=== PATIENT | male | born 1945 | race African-American/Black ===

== ENCOUNTER → 2019-04-06 | Outpatient (CLI) | payer MEDICARE | LOC: OD 08:47 | PROVIDERS: ATTEND Orthopaedic Surgery | DX: R79.82 Elevated C-reactive protein (CRP) (principal) | CPT/HCPCS: 36415; 86140 ==

== ENCOUNTER 2019-04-13 12:00 | Inpatient (IN) | payer MEDICARE ==
[2019-05-06] MEDS ORDERED: LIDOCAINE 0.5% INJ-PF (5 MG/ML) 50 ML SDV SUBCUT PRN (05:00)
[2019-05-06] MEDS ORDERED: LACTATED RINGERS 1000 ML IV PRN (05:00)
[2019-05-06] MEDS ORDERED: VANCOMYCIN HCL 1,000 MG in DEXTROSE 5%-WATER 250 ML IV PRN (05:00)
[2019-05-06] MEDS ORDERED: CEFAZOLIN SODIUM 2 GM in DEXTROSE 5%-WATER 100 ML IV PRN (05:00)
[2019-05-06] MEDS ORDERED: CELECOXIB 200 MG CAPSULE ONE ×2 (05:49→05:52)
[2019-05-06] MEDS ORDERED: ACETAMINOPHEN 325 MG TABLET ONE (05:49)
[2019-05-06] MEDS ORDERED: GABAPENTIN 100 MG CAPSULE ONE (05:50)
[2019-05-06] MEDS ORDERED: SCOPOLAMINE HYDROBROMIDE 1.5 MG PATCH.TD72 ONE (05:50)
[2019-05-06] MEDS ORDERED: TRAMADOL HCL 50 MG TABLET ONE (05:50)
[2019-05-06] MEDS ORDERED: OXYCODONE HCL SR 10 MG TABLET PO ONE (05:50)
[2019-05-06] MEDS ORDERED: MIDAZOLAM 2 MG/2 ML INJ ONE (06:57)
[2019-05-06] MEDS ORDERED: FENTANYL CITRATE INJ/PF 100 MCG/2 ML AMPUL ONE ×3 (06:57→11:23)
[2019-05-06] MEDS ORDERED: ONDANSETRON HCL INJ/PF 4 MG/2 ML SDV ONE (06:58)
[2019-05-06] MEDS ORDERED: DEXAMETHASONE SOD PHOSPHATE INJ 4 MG/1 ML VIAL ONE (06:58)
[2019-05-06] MEDS ORDERED: PROPOFOL INJ 200 MG/20 ML VIAL IV ONE (06:58)
[2019-05-06] MEDS ORDERED: LIDOCAINE 2% INJ (20 MG/ML) 20 ML MDV ONE (06:59)
[2019-05-06] MEDS ORDERED: FENTANYL CITRATE INJ/PF 100 MCG/2 ML AMPUL IV PRN ×3 (08:17→08:18)
[2019-05-06] MEDS ORDERED: MEPERIDINE HCL/PF INJ 25 MG/1 ML DISP.SYRIN IV PRN (08:17)
[2019-05-06] MEDS ORDERED: DIPHENHYDRAMINE HCL 50 MG/ML VIAL IV PRN (08:17)
[2019-05-06] MEDS ORDERED: MORPHINE SULFATE 10 MG/ML INJ IV PRN ×2 (08:17→11:11)
[2019-05-06] MEDS ORDERED: ONDANSETRON HCL INJ/PF 4 MG/2 ML SDV IV PRN (08:17)
[2019-05-06] MEDS: BUPIVACAINE HCL 0.25 % INJ/PF (2.5 MG/1 ML) 30 ML VIAL ONE ×2 (08:30→09:30)
[2019-05-06] MEDS: VANCOMYCIN HCL INJ 1000 MG VIAL ONE ×2 (08:30→09:30)
[2019-05-06] MEDS: KETOROLAC TROMETHAMINE INJ/PF 30 MG/1 ML SDV ONE ×2 (08:30→09:30)
[2019-05-06] MEDS ORDERED: EPHEDRINE SULFATE INJ 50 MG/1 ML AMPULE ONE (08:33)
[2019-05-06] MEDS ORDERED: METOPROLOL SUCCINATE 50 MG TAB.SR.24H PO SCH (10:00)
[2019-05-06] MEDS ORDERED: (PENDING PHARMACY ID) (Metformin Hcl [Metformin Hcl] 1,000 MG) PO SCH (10:00)
[2019-05-06] MEDS ORDERED: FLUTICASONE PROPIONATE IN SCH (10:00)
[2019-05-06] MEDS ORDERED: NIACIN 500 MG PO SCH ×2 (10:00→11:00)
[2019-05-06] MEDS ORDERED: (PENDING PHARMACY ID) (Magnesium Oxide [Magnesium] 500 MG) PO SCH (10:00)
[2019-05-06] MEDS ORDERED: TAMSULOSIN HCL 0.4 MG CAP.SR.24H PO SCH (10:00)
[2019-05-06] MEDS ORDERED: CYANOCOBALAMIN (VITAMIN B-12) 1,000 MCG TABLET PO SCH (10:00)
--- NOTE | 2019-05-06 10:47 | Operative Report ---
Operative Report DATE OF SURGERY: 05/06/19 PREOPERATIVE DIAGNOSIS: Left primary hip osteoarthritis, severe with protrusio POSTOPERATIVE DIAGNOSIS: Left primary hip osteoarthritis with protrusio, severe OPERATION: Left total hip arthroplasty SURGEON: MOE MILLER JR ANESTHESIA: GA COMPLICATIONS: None ESTIMATED BLOOD LOSS: 100 cc PROCEDURE: Implants: Biomet Taperloc size 14 femoral stem with lateral offset, a Biomet G7 size 62 cup, and a standard liner, a -3 neck length 40 mm ceramic head BRIEF HISTORY: 73 year old male with severe degenerative arthritis of left hip, which has failed conservative treatment and has elected for a total hip arthroplasty. Risks include but are not limited to bleeding, infection, anesthesia, , injury to nerve or vessel, pain, scar, leg length inequality, dislocation, future surgery, and blood clots. Patient read through the pre-op counseling form and signed and solicited for surgery on their left hip. OPERATIVE PROCEDURE: Patient was brought to the operating room on and underwent spinal anesthesia. 2 grams of Ancef and 1 g of vancomycin was given. After proper anesthesia was obtained, patient was positioned, padded, prepped, and draped in the usual sterile fashion on the operating room table. Appropriate time out was performed. An anterior approach to the hip was undertaken with me ticulous hemostasis through the deep interval. A capsulectomy was performed followed by exposure of the femoral neck. The femoral neck was cut in line with the femoral broach and extraction was attempted. Due to prior protrusio, the femoral head was difficult to extract. We removed peripheral osteophytes and attempted extraction again. Unfortunately, this was not adequate and we then had to section the head piecemeal in order to get it out of the acetabulum. The acetabulum was then exposed with three retractors in an atraumatic fashion. Due to the protrusio this was more difficult than usual and required careful retractor placement, leg placement and further dissection in order to achieve adequate exposure. Soft tissue and osteophytes were removed. Anatomic reaming up to accept a 62 mm acetabulum. Because of the protrusio and medialized medial wall we were careful to ream anatomically and not medially. We therefore proceeded with morselizing some of the femoral head and packing that medially in order to have circumferential press-fit into the acetabulum. Wound was irrigated with dilute betadyne solution and the 62 mm acetabulum was impacted into correct position and stability checked by manipulating the impaction handle which rocked the pelvis. A neutral, 40 mm liner was impacted into the shell with good stability. Potential impinging osteophytes were removed. Attention was then directed toward the femur, which was exposed with two retractors in an atraumatic fashion. A bone hook was placed to carefully perform releases along the superior capsule until the femur was safely delivered through the wound. A crap game box person was utilized followed by lateralization rasping and then broaching up to accept a 14 femur. With a lateral offset neck and a -3 head, stability was good in flexion and extension with improved leg lengths. (Preoperatively the patient was approximately 10 to 15 mm long on the left and after trialing we had improved this to approximately 5 mm long on the left). The real lateral offset femur was impacted into a copiously irrigated femoral canal. A 40 mm -3 head was impacted on a clean dry femoral taper. The hip was irrigated and reduced, further irrigation with antibiotic solution, betadine solution, then antibiotic solution. Bleeders were coagulated with bovie cautery. The fascia was then closed with number 2 Stratofix; the subcutaneous tissue closed with interrupted inverted 2-0 monocryl then running 3-0 monocryl subcuticular. Dermabond skin glue was applied followed by a silver dressing. All needle sponge and instrument counts were correct. Patient was awakened from sedation anesthesia and taken to recovery room in good condition. Thank you, Moe Miller DO Due to the increased complexity of this case, it required extra time effort and meticulous attention to safety in order to achieve an ideal result. We spent extra time in getting exposure to the acetabulum, carefully prepping the acetabulum, reaming and packing bone graft in the medial wall of the acetabulum, and additionally spent extra time and exposing the femur as the patient was very large and muscular. Due to these things we are billing for increased time and effort.
[2019-05-06] MEDS ORDERED: OXYCODONE HCL IR 5 MG TABLET PO PRN (11:11)
[2019-05-06] MEDS ORDERED: TRAMADOL HCL 50 MG TABLET PO PRN (11:12)
[2019-05-06] MEDS ORDERED: TRANEXAMIC ACID INJ/PF 1,000 MG/10 ML SDV IV ONE (11:15)
[2019-05-06] MEDS ORDERED: PANTOPRAZOLE SODIUM 20 MG TABLET.DR PO PRN (11:22)
[2019-05-06] MEDS ORDERED: ZOLPIDEM TARTRATE 5 MG TABLET PO PRN (11:22)
[2019-05-06] MEDS ORDERED: DIPHENHYDRAMINE HCL 25 MG CAPSULE PO PRN (11:22)
[2019-05-06] MEDS ORDERED: TRANEXAMIC ACID INJ/PF 1,000 MG/10 ML SDV ONE (11:23)
[2019-05-06] MEDS ORDERED: NORMAL SALINE 1000 ML 1,000 ML IV PRN (11:23)
[2019-05-06] MEDS ORDERED: DOCUSATE SODIUM 100 MG CAPSULE PO PRN (11:23)
[2019-05-06] MEDS ORDERED: ONDANSETRON 4 MG TAB.RAPDIS PO PRN (11:24)
[2019-05-06] MEDS ORDERED: DEXAMETHASONE SOD PHOS INJ 10 MG/1 ML VIAL ONE (12:02)
--- NOTE | 2019-05-06 13:14 | RADIOLOGY REPORT (SQ) ---
EXAM DESCRIPTION: HIP LEFT AP/LATERAL COMPLETED DATE/TIME: 05/06/2019 11:37 am REASON FOR STUDY: s/p left total hip M25.552 PAIN IN LEFT HIP COMPARISON: None. NUMBER OF VIEWS: Two views. TECHNIQUE: AP pelvis and additional frog-leg view of the left hip. LIMITATIONS: None. FINDINGS: Postoperative images show a left hip arthroplasty in good position. No acute finding. De generative joint disease is present in the right hip. IMPRESSION: Left hip arthroplasty with no acute finding. Degenerative joint disease in the right hi p. TECHNICAL DOCUMENTATION: JOB ID: [id number] 2010 [employer]- All Rights Reserved Reading location - IP/workstation name: [email or web address]
[2019-05-06] MEDS ORDERED: ROCURONIUM BROMIDE INJ 50 MG/5 ML VIAL IV ONE (14:44)
[2019-05-06] MEDS ORDERED: SUCCINYLCHOLINE CHLORIDE INJ 200 MG/10 ML VIAL ONE (14:44)
--- NOTE | 2019-05-06 15:32 | RADIOLOGY REPORT (SQ) ---
EXAM DESCRIPTION: NO CHG FLUORO; HIP IN OPERATING RM COMPLETED DATE/TIME: 05/06/2019 2:40 pm REASON FOR STUDY: LEFT HIP TOTAL ARTHROPLASTY ASST WITH FLUORO IN OR M25.552 PAIN IN LEFT HIP COMPARISON: None. FLUOROSCOPY TIME: 0.1 minute 2 images saved to PACS. TECHNIQUE: Intra-operative images acquired during surgical procedure to evaluate progress. NUMBER OF IMAGES: 2 LIMITATIONS: None. FINDINGS: Fluoroscopic images from total hip arthroplasty. IMPRESSION: IMAGE(S) OBTAINED DURING PROCEDURE. COMMENT: Quality ID [id number]: Final reports for procedures using fluoroscopy that document radiation exp osure indices, or exposure time and number of fluorographic images (if radiation exposure indices are not available) Please consult full operative report of the attending physician for description of the procedure. TECHNICAL DOCUMENTATION: JOB ID: [id number] 2010 [employer]- All Rights Reserved Reading location - IP/workstation name: [email or web address]
--- NOTE | 2019-05-06 15:32 | RADIOLOGY REPORT (SQ) ---
EXAM DESCRIPTION: NO CHG FLUORO; HIP IN OPERATING RM COMPLETED DATE/TIME: 05/06/2019 2:40 pm REASON FOR STUDY: LEFT HIP TOTAL ARTHROPLASTY ASST WITH FLUORO IN OR M25.552 PAIN IN LEFT HIP COMPARISON: None. FLUOROSCOPY TIME: 0.1 minute 2 images saved to PACS. TECHNIQUE: Intra-operative images acquired during surgical procedure to evaluate progress. NUMBER OF IMAGES: 2 LIMITATIONS: None. FINDINGS: Fluoroscopic images from total hip arthroplasty. IMPRESSION: IMAGE(S) OBTAINED DURING PROCEDURE. COMMENT: Quality ID [id number]: Final reports for procedures using fluoroscopy that document radiation exp osure indices, or exposure time and number of fluorographic images (if radiation exposure indices are not available) Please consult full operative report of the attending physician for description of the procedure. TECHNICAL DOCUMENTATION: JOB ID: [id number] 2010 [employer]- All Rights Reserved Reading location - IP/workstation name: [email or web address]
[2019-05-06] MEDS: OXYCODONE HCL IR 5 MG TABLET PO PRN (16:44)
[2019-05-06] MEDS: ACETAMINOPHEN 325 MG TABLET PO SCH ×2 (16:45→21:34)
[2019-05-06] MEDS: CEFAZOLIN SODIUM 2 GM in DEXTROSE 5%-WATER 100 ML IV SCH ×2 (17:10→23:31)
[2019-05-06] MEDS: GABAPENTIN 100 MG CAPSULE PO SCH (17:23)
[2019-05-06] MEDS: KETOROLAC TROMETHAMINE INJ/PF 30 MG/1 ML SDV IV SCH (17:23)
[2019-05-06] MEDS: FLUTICASONE PROPIONATE HFA 110 MCG/PUFF 12 GM MDI IH SCH (17:26)
[2019-05-06] MEDS: METFORMIN HCL 500 MG TABLET PO SCH (21:34)
[2019-05-07] MEDS: KETOROLAC TROMETHAMINE INJ/PF 30 MG/1 ML SDV IV SCH ×2 (04:03→09:41)
[2019-05-07] MEDS: ACETAMINOPHEN 325 MG TABLET PO SCH (06:42)
[2019-05-07] MEDS: AMLODIPINE BESYLATE 5 MG TABLET PO SCH ×2 (09:36→09:38)
[2019-05-07] MEDS: ATORVASTATIN CALCIUM 40 MG TABLET PO SCH ×2 (09:37→09:38)
[2019-05-07] MEDS: PANTOPRAZOLE SODIUM 40 MG TABLET.DR PO SCH ×2 (09:37→09:38)
[2019-05-07] MEDS: MAGNESIUM OXIDE 400 MG TABLET PO SCH ×2 (09:37→09:39)
[2019-05-07] MEDS: ALLOPURINOL 100 MG TABLET PO SCH ×2 (09:37→09:38)
[2019-05-07] MEDS: GABAPENTIN 100 MG CAPSULE PO SCH (09:39)
[2019-05-07] MEDS: METFORMIN HCL 500 MG TABLET PO SCH (09:39)
[2019-05-07] MEDS: OXYCODONE HCL IR 5 MG TABLET PO PRN (09:40)
[2019-05-07] MEDS ORDERED: POLYETHYLENE GLYCOL 3350 POWDER 17 GM/1 PACKET PO SCH (10:00)
[2019-05-07] MEDS ORDERED: ASPIRIN 325 MG TABLET, ENT COATED PO SCH (10:00)
[2019-05-07] MEDS ORDERED: CELECOXIB 200 MG CAPSULE PO SCH (10:00)
[2019-05-07 10:09] VITALS: BP 111/65
[2019-05-07] MEDS: RAMIPRIL 10 MG CAPSULE PO SCH ×2 (12:26→12:35)
[2019-05-07] MEDS: FLUTICASONE PROPIONATE HFA 110 MCG/PUFF 12 GM MDI IH SCH (12:35)
--- NOTE | 2019-05-12 14:57 | PDOC DISCHARGE SUMMARY ---
Impression - Admit/DC Date/PCP Admission Date/Primary Care Provider: 05/06/19 05:15 KEN CRANE MD Discharge Date: 05/07/19 - Assessment Summary: Mr. Hargrove is a very pleasant to-year-old male who presented to my clinic with chronic left hip pain that is been going on for over a year. After thorough work-up and attempts at conservative treatment including activity modification and rxlo-mlp-ykgeejn pain medication, they were having severe difficulty with ambulation and was over the counter pain medication for daily activity. They found the pain debilitating and decreasing thier quality of life as they were unable to perform activities of daily living such as ambulating short distances and getting in and out of the car. After a thorough work-up including x-rays that demonstrated joint space narrowing, vnzm-xh-lssw contact, subchondral sclerosis, and osteophyte formation as well as discussing risks and benefits and other treatment options, the patient elected to proceed with a left total hip arthroplasty. They were brought to the operating room on 05/06/2019 and underwent a left total hip arthroplasty and tolerated procedure very well with out complication. They were then admitted to the hospital floor for postoperative medical management, monitoring, and pain control. On postoperative day #1 they were ambulating well with physical therapy, to the degree that they approved them for discharge home. They were discharged home on postoperative day #1. They had no acute events or complications over the course of their stay. All detailed instructions and prescriptions were provided to the patient prior to admission on the year prior office visit. - Additional Information Resuscitation Status: Full Code Discharge Diet: As Tolerated, Diabetic Discharge Activity: Activity As Tolerated, No Driving, Keep Legs Elevated, No Lifting Over 10 Pounds, Supervised Activity, No tub bath, Walk Frequently Referrals: KEN CRANE MD [Primary Care Provider] - 05/20/19 2:45 pm Home Medications: Acetaminophen [Mapap] 500 mg PO Q8HP PRN 04/28/19 Allopurinol [Zyloprim 100 mg Tablet] 100 mg PO DAILY 04/28/19 Atorvastatin Calcium [Lipitor 40 mg Tablet] 40 mg PO DAILY 04/28/19 Fluticasone Propionate [Flovent Diskus] 2 puff IN BID 04/28/19 Metoprolol Succinate [Toprol Xl 50 mg Tab.sr] 50 mg PO DAILY 04/28/19 Omeprazole 40 mg PO DAILY 04/28/19 Ramipril [Altace 10 mg Capsule] 10 mg PO DAILY 04/28/19 Tramadol HCl [Ultram] 50 mg PO Q4HP PRN 04/28/19 Amlodipine Besylate [Norvasc 5 mg Tablet] 5 mg PO DAILY 05/04/19 Cefadroxil 500 mg PO BID 05/04/19 Cyanocobalamin (Vitamin B-12) [Vitamin B-12] 1,000 mcg PO DAILY 05/04/19 Gabapentin [Neurontin 100 mg Capsule] 100 mg PO BID 05/04/19 Magnesium Oxide [Magnesium] 500 mg PO DAILY 05/04/19 Metformin HCl 1,000 mg PO BID 05/04/19 Niacin [Slo-Niacin] 500 mg PO DAILY 05/04/19 Tamsulosin HCl [Flomax 0.4 mg Cap.sr] 0.4 mg PO DAILY 05/04/19 Acetaminophen [Tylenol 325 mg Tablet] 975 mg PO Q8 tablet 05/06/19 Aspirin [Ecotrin 325 mg EC Tablet] 325 mg PO DAILY tabec 05/06/19 Celecoxib [Celebrex 200 mg Capsule] 200 mg PO DAILY capsule 05/06/19 Cyanocobalamin (Vitamin B-12) [Vitamin B-12 1000 mcg Tablet] 1,000 mcg PO DAILY tablet 05/06/19 Docusate Sodium [Colace 100 mg Capsule] 100 mg PO TIDP PRN capsule 05/06/19 Gabapentin [Neurontin 100 mg Capsule] 100 mg PO BID capsule 05/06/19 Tramadol HCl [Ultram 50 mg Tablet] 50 mg PO Q4HP PRN tablet 05/06/19 Oxycodone HCl [Oxy-Ir 5 mg Tablet] 5 mg PO Q4HP PRN tablet 05/07/19 Oxycodone HCl [Oxy-Ir 5 mg Tablet] 10 mg PO Q4HP PRN tablet 05/07/19 History of Present Illiness History of Present Illness: SAW HARGROVE is a 74 year old male who presented to my clinic with chronic left hip pain that is been going on for over a year. After thorough work-up and attempts at conservative treatment including activity modification and sknd-oya-yqrgdbu pain medication, they were having severe difficulty with ambulation and was over the counter pain medication for daily activity. They found the pain debilit ating and decreasing thier quality of life as they were unable to perform activities of daily living such as ambulating short distances and getting in and out of the car. After a thorough work-up including x-rays that demonstrated joint space narrowing, tctn-lp-mivc contact, subchondral sclerosis, and osteophyte formation as well as discussing risks and benefits and other treatment options, the patient elected to proceed with a left total hip arthroplasty. Hospital Course Hospital Course: They were brought to the operating room on 05/06/2019 and underwent a left total hip arthroplasty and tolerated procedure very well with out complication. They were then admitted to the hospital floor for postoperative medical management, monitoring, and pain control. On postoperative day #1 they were ambulating well with physical therapy, to the degree that they approved them for discharge home. They were discharged home on postoperative day #1. They had no acute events or complications over the course of their stay. All detailed instructions and prescriptions were provided to the patient prior to admission on the year prior office visit. Physical Exam Vital Signs: Temp Pulse Resp BP Pulse Ox 98.3 F 84 18 111/65 99 05/07/19 12:18 05/07/19 12:18 05/07/19 12:18 05/07/19 12:18 05/07/19 12:18 Results Laboratory Results: Glucose 107 mg/dL (75-110) 05/06/19 07:00 POC Glucose 114 mg/dL (70-110) H 05/06/19 11:21 Blood Type O POSITIVE 05/06/19 07:00 Antibody Screen NEGATIVE 05/06/19 07:00 Impressions: Fluoroscopy 05/06/19 00:00 IMPRESSION: IMAGE(S) OBTAINED DURING PROCEDURE. Hip X-Ray 05/06/19 00:00 IMPRESSION: IMAGE(S) OBTAINED DURING PROCEDURE. Hip X-Ray 05/06/19 10:45 IMPRESSION: Left hip arthroplasty with no acute finding. Degenerative joint disease in the right hip. Stroke Is this a Stroke Patient?: No Acute Heart Failure - Is this a Heart Failure Patient?: No
== END 2019-05-07 12:51 | disposition home or self-care (01) | DRG 470 ==
LOC: INOR 05-06 05:15 → 4N 05-06 14:54
PROVIDERS: ADMIT Orthopaedic Surgery; ATTEND Orthopaedic Surgery
PROC: 0QH Lower Bones, Insertion (ICD-10-PCS; 2019-05-06)
PROC: 0SRB02A Replacement of Left Hip Joint with Metal on Polyethylene Synthetic Substitute, Uncemented, Open Approach (ICD-10-PCS; principal; 2019-05-06 07:30)
DX: M16.12 Unilateral primary osteoarthritis, left hip (principal); M24.7 Protrusio acetabuli; M25.752 Osteophyte, left hip; I10 Essential (primary) hypertension; E11.9 Type 2 diabetes mellitus without complications; Z79.899 Other long term (current) drug therapy; Z79.82 Long term (current) use of aspirin; Z83.3 Family history of diabetes mellitus
CPT/HCPCS: 01214; 36415; 82947; 82962; 86850; 86900; 86901; J0330; J0690; J1100; J1885; J2250; J2405; J2704; J3010; J3370; J3490; J7030; J7060

== ENCOUNTER → 2019-04-23 | Outpatient (CLI) | payer MEDICARE ==
[2019-04-23 09:29] LABS: ABSOLUTE EOSINOPHILS # (AUTO) 0.1 10^3/uL (0.0-0.6); ABSOLUTE LYMPHOCYTES (AUTO) 0.8 10^3/uL (0.5-4.7); ABSOLUTE MONOCYTES (AUTO) 0.3 10^3/uL (0.1-1.4); ABSOLUTE NEUT (AUTO) 2.1 10^3/uL (1.7-8.2); BASOPHILS % (AUTO) 0.4 % (0-2); HEMOGLOBIN 12.5 g/dL (13.5-17.0); LYMPHOCYTES % (AUTO) 25.7 % (13-45); MEAN CORPUSCULAR HEMOGLOBIN 28.1 pg (27.0-33.4); MEAN CORPUSCULAR HGB CONC 33.7 g/dL (32.0-36.0); MEAN CORPUSCULAR VOLUME 83 fl (80-97); MONOCYTES % (AUTO) 8.6 % (3-13); PLATELET COUNT 198 10^3/uL (150-450); RED BLOOD COUNT 4.44 10^6/uL (4.35-5.55); RED CELL DISTRIBUTION WIDTH 15.4 % (11.5-14.0); SEGMENTED NEUTROPHILS % (AUTO) 62.3 % (42-78); TOTAL CELLS COUNTED % (AUTO) 100 %; WHITE BLOOD COUNT 3.3 10^3/uL (4.0-10.5)
[2019-04-23 09:34] LABS: APPEARANCE,URINE CLEAR; BILIRUBIN,URINE NEGATIVE (NEGATIVE); COLOR,URINE YELLOW; GLUCOSE, URINE NEGATIVE (NEGATIVE); KETONES,URINE NEGATIVE (NEGATIVE); LEUKOCYTE ESTERASE,URINE NEGATIVE (NEGATIVE); NITRITE,URINE NEGATIVE (NEGATIVE); PROTEIN,URINE NEGATIVE (NEGATIVE); URINE SPECIFIC GRAVITY 1.014; UROBILINOGEN,URINE NEGATIVE mg/dL (<2.0)
[2019-04-23 10:03] LABS: ALBUMIN 4.4 g/dL (3.5-5.0); ANION GAP 13 (5-19); BLOOD UREA NITROGEN 14 mg/dL (7-20); CALCIUM 9.8 mg/dL (8.4-10.2); CARBON DIOXIDE 26 mmol/L (22-30); CHLORIDE 99 mmol/L (98-107); GLUCOSE 95 mg/dL (75-110); POTASSIUM 4.7 mmol/L (3.6-5.0)
[2019-04-23 10:07] LABS: PREALBUMIN 21.4 mg/dL (17.6-36.0)
[2019-04-23 10:11] LABS: C-REACTIVE PROTEIN < 5.0 mg/L (<10.0)
[2019-04-23 10:17] LABS: ERYTHROCYTE SEDIMENTATION RATE 30 mm/hr (0-20)
== END ==
LOC: OD 08:38
PROVIDERS: ATTEND Orthopaedic Surgery
DX: Z01.812 Encounter for preprocedural laboratory examination (principal); R73.09 Other abnormal glucose
CPT/HCPCS: 36415; 80048; 81001; 82040; 82306; 83036; 84134; 85025; 85652; 86140